=== PATIENT | female | born 1980 | race Caucasian/White ===

== ENCOUNTER → 2017-01-07 | Outpatient (CLI) | payer BC | LOC: RAD 10:06 | PROVIDERS: ATTEND Physician Assistant | DX: M79.2 Neuralgia and neuritis, unspecified (principal) | CPT/HCPCS: 70450 ==

== ENCOUNTER → 2020-08-21 | Outpatient (CLI) | payer MEDICAID ==
--- NOTE | 2020-08-21 15:45 | RADIOLOGY REPORT (SQ) ---
EXAM DESCRIPTION: U/S THYROID/SFT TISS HD NECK IMAGES COMPLETED DATE/TIME: 08/21/2020 3:30 pm REASON FOR STUDY: (E07.89)OTHER SPECIFIED DISORDERS OF THYROID E07.89 OTHER SPECIFIED DISORDERS OF THYROID COMPARISON: None. TECHNIQUE: Dynamic and static be-scale images acquired of the thyroid gland. Selected additional c olor/power Doppler images recorded. All images stored to PACS. LIMITATIONS: None. FINDINGS: RIGHT LOBE: Normal size measuring 4.4 x 1.9 x 1.7 cm Homogeneous echotexture. Hypoechoic solid nodule with ill-defined borders and no calcifications measuring 6 x 5 x 2 mm within the interp olar region (TI rads 4). There is an adjacent smaller hypoechoic solid nodule with smooth margin and no internal calcifications measuring 3 x 3 x 2 mm (TI rads 4). LEFT LOBE: Normal in size measuring 4.4 x 1.6 x 1.5 cm. Homogeneous echotexture. There is a hypoech oic solid nodule wall with smooth margin and no internal calcifications in the interpolar region desmond uring 4 x 4 x 3 mm (TI rads 4). ISTHMUS: Normal in size measuring 4 mm. Homogeneous echotexture. No cystic or solid masses. OTHER: No other significant finding. IMPRESSION: Scattered small thyroid nodules, none of which meet biopsy criteria at this time. Follo w-up recommendations as below. COMMENT: The [employer] ([employer]) Thyroid Imaging Reporting And Data System (TI-RADS ) is an ultrasound feature based summed scoring system of risk categorization and management recommen dations for thyroid nodules. TI-RADS assessment categories are as follows: 0 - Incomplete exam: Additional imaging or comparison to prior examinations recommended. 1. - Benign: Fine-needle aspiration or follow-up not routinely recommended in the absence of clinical change. 2. - Not suspicious: Fine-needle aspiration or follow-up not routinely recommended in the absence of clinical change. 3. - Mildly suspicious: Fine-needle aspiration recommended if greater than or equal to 2.5 cm in size . Ultrasound follow-up recommended if greater than or equal to 1.5 cm in size. Follow-up at 1, 3, and 5 years. 4. - Moderately suspicious: Fine-needle aspiration recommended if greater than or equal to 1.5 cm in size. Ultrasound follow-up recommended if greater than or equal to 1.0 cm in size. Follow-up at 1, 2, 3, and 5 years. 5. - Highly suspicious: Fine-needle aspiration recommended if greater than or equal to 1.0 cm in size . Ultrasound follow-up recommended if greater than or equal to 0.5 cm in size. Follow-up at 1, 2, 3, and 5 years. TECHNICAL DOCUMENTATION: JOB ID: [id number] 2010 [employer]- All Rights Reserved Reading location - IP/workstation name: [email or web address]
== END ==
LOC: RAD 15:05
PROVIDERS: ATTEND Otolaryngology
DX: E04.2 Nontoxic multinodular goiter (principal)
CPT/HCPCS: 76536